=== PATIENT | male | born 1935 ===

== ENCOUNTER 2023-04-02 14:25 | Emergency (ER) | payer MEDICARE, SELFPAY ==
[2023-04-02] VITALS (14 sets, daily range): BP systolic 114–178; BP diastolic 57–90; PULSE 53–83; RESP 12–19; TEMP 36.6–36.7; O2SAT 93–98; BMI 26.5
--- NOTE | ~2023-04-02 | CT_ITS ---
EXAMINATION: CT HEAD WITHOUT CONTRAST (STROKE PROTOCOL) CLINICAL INFORMATION: Stroke protocol. Left facial numbness and left upper extremity numbness COMPARISON: None available. TECHNIQUE: Contiguous axial imaging was performed from the skull base to vertex without intravenous administration of contrast. This CT examination was performed using dose optimization techniques as appropriate, variously including the following: *Automated exposure control *Adjustment of mA and/or kV according to patient size (this includes techniques or standardized protocols for targeted exams where dose is matched to indication/reason for exam; i.e. extremities or head) *Use of iterative reconstruction technique DLP: 743 mGy-cm FINDINGS: There is a subtle focal hyperdensity seen along the right frontal cortical margin in the precentral gyrus on axial image 20/3 and coronal image 50/6. There is suspicious for small pedicle hemorrhage. However there are no previous exams available for comparison. Extra-axial bleed seen. There is no acute infarction, edema or midline shift. No abnormality seen in the posterior fossa. The lateral ventricles are symmetrical in size and configuration without enlargement. Bone windows reveal no calvarial abnormality there is no scalp soft tissue abnormality. Bilateral paranasal sinuses and mastoid air cells are well-aerated. CT/CT head for stroke IMPRESSION: Subtle hypodensity along the right precentral gyrus cortex question petechial hemorrhage. Patient received 161 mg capsule prior to the CT scan. There is no acute extra-axial bleed. Patient has no previous CT head for comparison. This critical result was discussed with Dr. Magui Segovia by phone at 3:15 PM on 04/02/2023. It was ascertained that the content and urgency of the report was understood at the time of direct communication.
--- NOTE | ~2023-04-02 | CT_ITS ---
EXAMINATION: CT ANGIOGRAM HEAD CT ANGIOGRAM NECK CLINICAL INFORMATION: left face, LUE numbness COMPARISON: None. TECHNIQUE: Initial noncontrast yard loader operator imaging of the head and neck was performed. Comparison is made with noncontrast head CT from earlier today. Test bolus sequences followed by intravenous administration 70 mL of Omnipaque 350. Helical imaging was performed in the axial plane from the aortic arch to the skull vertex. Delayed postcontrast imaging of the head was also performed. The data was processed at the vascular technologist's workstation for generation of MIP sequences. Angled MIPs and volume rendered reformatted images were also generated at an offline 3D workstation. Stenoses are assessed in accordance with Malone et al. Quantification of Carotid Stenosis on CT Angiography. AJR 2006. 27(1):13-19. This CT examination was performed using dose optimization techniques as appropriate, variously including the following: *Automated exposure control *Adjustment of mA and/or kV according to patient size (this includes techniques or standardized protocols for targeted exams where dose is matched to indication/reason for exam; i.e. extremities or head) *Use of iterative reconstruction technique DLP: 743 mGy-cm FINDINGS: CT HEAD: Trace subarachnoid hemorrhage within the high right frontal lobe within the central sulcus. 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 No territorial loss of gamboa-white differentiation. No mass lesion, significant mass effect, or herniation pattern. No pathologic intra-axial enhancement or regional oligemia. Lateral and extractions. Hyperostosis of the right maxillary sinus wall compatible with chronic sinusitis with trace mucosal thickening. No mastoid effusion. Osseous structures are intact. CTA HEAD: No proximal hemodynamically significant stenosis or occlusion in the anterior or posterior circulation. Apparent luminal irregularity of the distal vasculature may be on a technical basis however underlying stenoses related to either atheromatous disease or small vessel vasculopathy/vasculitis would be difficult to exclude. Trace mild calcific plaque along the bilateral carotid siphons contributes to minimal luminal narrowing of the greater than right paraclinoid segments. Incidental azygos configuration of the anterior circulation. Fusiform prominence of the terminal segment of the left ICA/carotid terminus likely on the basis of a prominent left posterior communicating artery supplying the posterior circulation with associated infundibular origin of the left posterior communicating artery. No aneurysms and no high flow vascular malformations. Timing of the contrast bolus allows assessment of the major dural venous sinuses, which all opacify normally CTA NECK: Suboptimal contrast bolus timing. Ectatic ascending aorta measuring up to 4 cm. Classic 3 vessel branching pattern of the aortic arch. Trace calcific plaque at the left subclavian artery origin with widely patent origins of the great vessels. The common carotid arteries are widely patent. Traced partially calcified plaque at the bilateral carotid bifurcations with widely patent internal carotid artery origins and normal opacification along the remainder of the cervical segments, noting slight tortuosity of the distal right cervical segment. The left vertebral artery is dominant. The vertebral artery ostia are widely patent. Both vertebral arteries are widely patent throughout their extracranial cervical course. CT NECK: Prior bilateral sinus lift procedures associated with maxillary dental implants. Punctate palatine and lingual tonsilloliths. Lobulated soft tissue along the bilateral base of tongue projecting into the vallecula probably on the basis of lingual tonsillar hyperplasia. Diminutive appearance of the thyroid gland. 4 mm subpleural nodule within the lateral right upper lobe. 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 Apparent moderate thoracic spinal canal stenosis with mass effect along the right ventral cord and multilevel high-grade neural foraminal stenosis. CT/CT angio head neck stroke IMPRESSION: 1. Trace subarachnoid hemorrhage within the high right frontal lobe within the central sulcus. 2. No proximal large vessel occlusion or hemodynamically significant stenosis, noting apparent luminal irregularity of the distal vasculature which may be on a technical basis however underlying stenoses related to either atheromatous disease or small vessel vasculopathy/vasculitis would be difficult to exclude. 3. 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 Apparent moderate thoracic spinal canal stenosis with mass effect along the right ventral cord and multilevel high-grade neural foraminal stenosis. If there is referrable myelopathy/radiculopathy, further evaluation of these findings with dedicated cervical spine MRI may be performed as clinically warranted. 4. 4 mm subpleural nodule within the lateral right upper lobe. Various management parameters for solitary pulmonary nodules are in the literature. According to the Fleischner Society, recommendations for pulmonary nodules are as follows: Nodule size < or = to 4 mm in LOW RISK PATIENTS: No follow up needed. Nodule size < or = to 4 mm in HIGH RISK PATIENTS: Follow up CT at 12 months; if unchanged, no further follow up. Impression 1,[address] Balbuena at 3:29 PM on 04/02/2023 and it was ascertained that the content and urgency of the report was understood at the time of direct communication.
--- NOTE | 2023-04-02 14:31 | ECG_ITS ---
Test Reason : STROKE Blood Pressure : / mmHG Vent. Rate : 060 BPM Atrial Rate : 060 BPM P-R Int : 190 ms QRS Dur : 096 ms QT Int : 454 ms P-R-T Axes : 021 -46 038 degrees QTc Int : 454 ms Normal sinus rhythm Left axis deviation Abnormal ECG No previous ECGs available Referred By: Magui Humphries Electronically Signed By:FRANCESCO CHATMAN
--- NOTE | 2023-04-02 14:32 | ED.NEUROSD ---
HPI - Neuro Symptoms/Deficit General Chief Complaint: Stroke Stated Complaint: slurred speech Time Seen by Provider: 04/02/23 14:29 Source: patient and family Mode of arrival: ambulatory History of Present Illness HPI Narrative: 87-year-old male comes in as the this stroke protocol with last known well approximately 20 minutes prior to presentation. Patient states that he was on his way to [place] when he began experiencing left-sided numbness with associated slurred speech which resolved and then began experiencing left upper extremity numbness which is also resolved. According to the who is at bedside he has underlying hypertension, no diabetes and is not on any anticoagulation. Related Data Allergies Allergy/AdvReac Type Severity Reaction Status Date / Time No Known Allergies Allergy Verified 04/02/23 14:31 Review of Systems Review of Systems: Pertinent positives and negatives as stated in HPI [facility] Past Medical History Source: nursing notes reviewed Social History Social History Advance Directives: Yes Advance Directives Information Provided: No Advance Directives on File: No Physical Exam Vital Signs: Vital Signs: Last Vital Signs Temp 98 F 04/02/23 14:40 Pulse 57 04/02/23 14:40 Resp 18 04/02/23 14:40 BP 165/85 H 04/02/23 14:40 Pulse Ox 97 04/02/23 14:40 O2 Del Method Room Air 04/02/23 14:40 BMI result Body Mass Index 26.5 VITAL SIGNS: Reviewed. GENERAL: Well developed, well nourished, in no acute distress. HEAD: Normocephalic/atraumatic EYES: PERRLA, EOMI EARS: Ext canals without abnormality NOSE: Nares patent bilateral OROPHARYNX: no oral lesions noted, posterior pharynx clear NECK: Supple, no adenopathy LUNGS: Normal breath sounds. No adventitious sounds or accessory muscle use. CARDIOVASCULAR: Regular rate and rhythm without noted murmurs, no JVD or lower extremity edema. ABDOMEN: Soft, non-tender, non-distended with bowel sounds. MUSCULOSKELETAL: No tenderness, deformities, or effusions noted on gross inspection. EXTREMITIES: No cyanosis, clubbing or edema. SKIN: Inspection of the skin reveals no rashes NEUROLOGIC: Alert and oriented x 4. Strength and sensation to light touch were grossly intact x 4. Medications Administered Discontinued Medications Generic Name Dose Route Start Last Admin Trade Name Jun PRN Reason Stop Dose Admin Aspirin 162 mg 04/02/23 14:43 04/02/23 15:10 Aspirin 81 Mg Tab.Chew PO 04/02/23 14:44 162 mg ONCE ONE Administration Iohexol 100 ml 04/02/23 15:05 04/02/23 15:06 Iohexol 350 Mg/Ml 100 Ml Infus..Btl IV 04/02/23 15:06 70 ml ONCE ONE Administration Medical Decision Making Medical Decision Making MDM Narrative: 87-year-old male with history and clinical presentation suggestive at a minimum TIA but concern for possible stuttering symptoms, will proceed with CT stroke protocol and discussed with Neurology. 1445: Spoke with Clement: ASA, CT angio head/neck. 1515: I got called into the room for recurrence of right facial numbness/droop with dysarthria related to the numbness. In addition, radiology called to inform me that there suspicion for right precentral gyrus bleed. 1529: [facility] called to corroborate that patient has a subarachnoid hemorrhage at the high frontal lobe/central sulcus on the right side. I informed the family the CT findings and let them know that there would be a transfer to [facility]. 1538: I discussed case with [facility] [place] [facility] who will contact the neuro intensive care unit provider, Dr Salcedo, who recommenda 1.5mg Keppra, and pt can be admitted to stepdown. 1605: I discussed case with [facility] hospitalist's, Renee, who accepts the patient. Patient being started on nicardipine drip for blood pressure control, head of bed is at 30 degrees, still has left sided facial numbness but otherwise asymptomatic. A CD containing the images is being created for transfer. Differential Diagnosis Please see the discussion above Consult Healthcare Provider Management of the patient was discussed with: Jointer Machine Please see the discussion above Lab Data See the discussion above 04/02/23 14:36 04/02/23 14:36 Labs: Lab Results 04/02/23 04/02/23 04/02/23 Range/Units 14:36 14:36 14:36 WBC 5.0 (4.8-10.8) X10*3/uL RBC 4.39 L (4.60-5.80) X10*6/uL Hgb 14.8 (14.0-18.0) g/dl Hct 42.1 (42.0-52.0) % MCV 95.9 (80.0-98.0) fL MCH 33.7 H (27.0-33.0) pg MCHC 35.2 (31.0-36.0) g/dl RDW 12.9 (11.0-16.0) % Plt Count 137 L (160-400) X10*3/uL MPV 9.3 L (9.4-12.4) fL Immature Gran % (Auto) 0.4 (0.0-0.4) % Neut % (Auto) 58.6 (45-73) % Lymph % (Auto) 32.1 (20-40) % [place] % (Auto) 7.5 (2-11) % Eos % (Auto) 0.8 (0-4) % Baso % (Auto) 0.6 (0-2) % Lymph # (Auto) 1.6 (1.2-4.9) X10*3/uL [place] # (Auto) 0.4 (0.1-1.2) X10*3/uL Eos # (Auto) 0.0 (0.0-0.4) X10*3/uL Baso # (Auto) 0.0 (0.0-0.2) X10*3/uL Abs Immat Gran (auto) 0.02 (0.00-0.03) X10*3/uL Absolute Neuts (auto) 2.9 (2.0-8.3) x10*3/uL Absolute Nucleated RBC 0.000 (0.0-0.012) X10*3/uL Nucleated RBC % (auto) 0.0 (0.0-0.2) /100WBC PT 10.9 (10.0-13.1) SEC Whole Blood PT (11.1-13.5) sec INR 1.0 (0.9-1.1) Whole Blood INR (0.9-1.1) APTT 28.2 (26.0-36.4) SEC Sodium 141 (135-145) mmol/L Potassium 3.4 (3.3-5.1) mmol/L Chloride 106 (96-108) mmol/L Carbon Dioxide 25 (22-29) mmol/L Anion Gap 13 (12-20) BUN 8 L (9-16) mg/dL Creatinine 0.78 (0.5-1.4) mg/dL Estim Creat Clear Calc 71.4 Estimated GFR > 60 POC Glucose (60-115) mg/dL Random Glucose 97 (60-115) mg/dL Calcium 9.3 (8.4-10.2) mg/dL Total Creatine Kinase 85 (38-174) U/L Troponin I High Sens (<3.5-35.0) ng/L 04/02/23 04/02/23 04/02/23 Range/Units 14:36 14:39 14:39 WBC (4.8-10.8) X10*3/uL RBC (4.60-5.80) X10*6/uL Hgb (14.0-18.0) g/dl Hct (42.0-52.0) % MCV (80.0-98.0) fL MCH (27.0-33.0) pg MCHC (31.0-36.0) g/dl RDW (11.0-16.0) % Plt Count (160-400) X10*3/uL MPV (9.4-12.4) fL Immature Gran % (Auto) (0.0-0.4) % Neut % (Auto) (45-73) % Lymph % (Auto) (20-40) % [place] % (Auto) (2-11) % Eos % (Auto) (0-4) % Baso % (Auto) (0-2) % Lymph # (Auto) (1.2-4.9) X10*3/uL [place] # (Auto) (0.1-1.2) X10*3/uL Eos # (Auto) (0.0-0.4) X10*3/uL Baso # (Auto) (0.0-0.2) X10*3/uL Abs Immat Gran (auto) (0.00-0.03) X10*3/uL Absolute Neuts (auto) (2.0-8.3) x10*3/uL Absolute Nucleated RBC (0.0-0.012) X10*3/uL Nucleated RBC % (auto) (0.0-0.2) /100WBC PT (10.0-13.1) SEC Whole Blood PT 12.5 (11.1-13.5) sec INR (0.9-1.1) Whole Blood INR 1.0 (0.9-1.1) APTT (26.0-36.4) SEC Sodium (135-145) mmol/L Potassium (3.3-5.1) mmol/L Chloride (96-108) mmol/L Carbon Dioxide (22-29) mmol/L Anion Gap (12-20) BUN (9-16) mg/dL Creatinine (0.5-1.4) mg/dL Estim Creat Clear Calc Estimated GFR POC Glucose 93 (60-115) mg/dL Random Glucose (60-115) mg/dL Calcium (8.4-10.2) mg/dL Total Creatine Kinase (38-174) U/L Troponin I High Sens 2.8 (<3.5-35.0) ng/L Independent Interpretation I performed an independent interpretation of an: EKG Interpretation: Normal sinus rhythm, HR -60, no STEMI, UT/QRS/QTC is within normal limits. Radiology Impression Radiologist Impression: My interpretation is in agreement with radiology's impression. Chronic Conditions Patient?s care impacted by: Hypertension NIH Stroke Scale Internal: Initial- Upon Arrival Level of Consciousness: Alert Level of Consciousness Questions: Answers both questions correctly Level of Consciousness Commands: Performs both tasks correctly Best Gaze: Normal Visual: No visual loss Facial Palsy: Normal Motor Arm (Right): No drift Motor Arm (Left): No drift Motor Leg (Right): No drift Motor Leg (Left): No drift Limb Ataxia: Present in one limb (Right upper extremity) Sensory: Normal Best Language: No aphasia Dysarthia: Normal Extinction and Inattention: No abnormality Score: 1 Discharge Plan Discharge Clinical Impression: Subarachnoid hemorrhage Patient Disposition: [facility] Transfer Details: Subarachnoid hemorrhage, escalation of care and specialty services.
[2023-04-02 14:41] LABS: MANUAL DIFF FLAG NO
[2023-04-02 14:42] LABS: Basophils Percent Auto 0.6 % (0-2); Eosinophils Percent Auto 0.8 % (0-4); Hematocrit 42.1 % (42.0-52.0); Hemoglobin 14.8 g/dl (14.0-18.0); Imm Gran Abs Auto 0.02 X10*3/uL (0.00-0.03); Imm Gran Pct Auto 0.4 % (0.0-0.4); Lymphocytes Absolute Auto 1.6 X10*3/uL (1.2-4.9); Lymphocytes Percent Auto 32.1 % (20-40); Mean Corpuscular HGB Conc 35.2 g/dl (31.0-36.0); Mean Corpuscular Hemoglobin 33.7 pg (27.0-33.0); Mean Corpuscular Volume 95.9 fL (80.0-98.0); Mean Platelet Volume 9.3 fL (9.4-12.4); Monocytes Absolute Auto 0.4 X10*3/uL (0.1-1.2); Monocytes Percent Auto 7.5 % (2-11); Neutrophils Absolute Auto 2.9 x10*3/uL (2.0-8.3); Neutrophils Percent Auto 58.6 % (45-73); Platelet Count 137 X10*3/uL (160-400); Red Blood Count 4.39 X10*6/uL (4.60-5.80); Red Cell Distribution Width 12.9 % (11.0-16.0)
--- NOTE | 2023-04-02 14:44 | PC.NURSE ---
p a&ox4, vss, reports left sided facial/arm numbness with slurred speech, resolved prior to arrival, neuro intact on exam, 20G IV placed left AC, labs drawn, stroke protocol completed by tech, pt to CT.
[2023-04-02 14:45] LABS: Prothrombin Time Whole Bld POC 12.5 sec (11.1-13.5)
[2023-04-02 14:46] LABS: Glucose, Whole Blood 93 mg/dL (60-115)
[2023-04-02 14:46] LABS: Prothrombin Time 10.9 SEC (10.0-13.1)
[2023-04-02 14:49] LABS: Partial Thromboplastin Time 28.2 SEC (26.0-36.4)
[2023-04-02 14:52] LABS: Stroke Lab Use COMPLETE
[2023-04-02 14:55] LABS: Anion Gap 13 (12-20); Blood Urea Nitrogen 8 mg/dL (9-16); Calcium 9.3 mg/dL (8.4-10.2); Carbon Dioxide 25 mmol/L (22-29); Chloride 106 mmol/L (96-108); Creatinine Clr Calc Pharmacy 71.4; Estimated Glomerular Filt Rate > 60; Glucose Random 97 mg/dL (60-115); Potassium 3.4 mmol/L (3.3-5.1); Sodium 141 mmol/L (135-145)
[2023-04-02 15:01] LABS: Troponin-I High Sensitivity 2.8 ng/L (<3.5-35.0)
[2023-04-02] MEDS: iohexoL 350 MG/ML 100 ML INFUS..BTL IV (15:06)
[2023-04-02] MEDS: Aspirin 81 MG TAB.CHEW 162 MG PO (15:10)
[2023-04-02] MEDS: levETIRAcetam 500 MG/5 ML VIAL 1500 MG IV (16:14)
[2023-04-02] MEDS: niCARdipine HCL 25 MG in 0.9 % Sodium Chloride 250 ML 52 MG IVCONT (16:30)
[2023-04-02 16:33] LABS: COVID-19 Test Negative (Negative); IDNOW Serial# BCCEAD1C
--- NOTE | 2023-04-02 16:51 | PC.NURSE ---
pt hypertensive, medicated per MAR, pt pending transport/bed assignment @ [facility].
--- NOTE | 2023-04-02 18:00 | PC.NURSE ---
MD Palma aware pt bp 114/65. Pt denies SOB/CP. Denies any neuro sx. AOx4. Nitro gtt paused per MD Palma.
--- NOTE | 2023-04-02 19:27 | PC.NURSE ---
A/O x4. speech clear, no complaints of weakness at this time. UE strength 5/5 LE strength 5/5. denies pain. breathing easy/comfortably, skin color norm/warm/dry. moving all extremities well. No vision abnormalities. at bedside. waiting for transfer/bed assignment at [facility]. cont to monitor.
--- NOTE | 2023-04-02 21:57 | PC.NURSE ---
Called [facility] to give report; RN made aware that room was a possible meningitis case and needs terminal cleaning; would not take report. will call back in 30 minutes for update. pt resting comfortably at this time. cont to monitor.
--- NOTE | 2023-04-02 22:35 | PC.NURSE ---
report given to Melvina. pt/family made aware of transport.
== END 2023-04-02 22:55 | disposition short-term general hospital (02) ==
PROVIDERS: Emergency Provider Student in an Organized Health Care Education/Training Program; PCP Internal Medicine
DX: I60.8 Other nontraumatic subarachnoid hemorrhage (principal); R29.810 Facial weakness; R47.1 Dysarthria and anarthria; G81.94 Hemiplegia, unspecified affecting left nondominant side; I10 Essential (primary) hypertension; Z20.822 Contact with and (suspected) exposure to COVID-19
CPT/HCPCS: 36415; 70450; 70496; 70498; 80048; 82550; 82947; 84484; 85025; 85610; 85730; 87635; 93005; 96365; 96366; 96375; 99285; J1953; Q9967